=== PATIENT | male | born 1930 | race Caucasian/White ===

== ENCOUNTER 2017-05-10 17:09 | Inpatient (IN) | payer MEDICARE, OTHER ==
[~2017-05-10] VITALS: Ht 175.3 cm; Wt 85.1 kg
[~2017-05-10 17:09] MED LIST: ACAI500C4 PO; ALPH300T PO; ASCO500 PO; ASPI81TA82 PO; CALC500T19 PO; COQ1200C3 PO; FENO50TA; GLUC500C4 PO; LISI2.5T3 PO; NEURO-PS PO; OMEG120017 PO; RESV50CA PO; ROSU5 PO; TAMS0.4C67 PO; TRIA0.25 PO; TURM500C PO; VITA20003 PO
[2017-05-10 17:13] VITALS: BP 122/62; PULSE 117; RESP 16; TEMP 97.9; O2SAT 95
[2017-05-10] MEDS ORDERED: LUTE1TAB PO (17:25)
[2017-05-10] MEDS ORDERED: CHOL5000 PO (17:25)
[2017-05-10] MEDS ORDERED: APIX2.5T PO (17:25)
[2017-05-10] MEDS ORDERED: DILT-60 PO (17:25)
[2017-05-10] MEDS ORDERED: CALC1TAB12 PO (17:25)
[2017-05-10] MEDS ORDERED: MAGN500T2 PO (17:25)
[2017-05-10] MEDS ORDERED: AFLI2VIA (17:25)
[2017-05-10] MEDS ORDERED: UBIQ100C PO (17:25)
[2017-05-10] MEDS ORDERED: CURCPOW PO (17:25)
[2017-05-10] MEDS ORDERED: OMEGCAP PO (17:25)
[2017-05-10] MEDS ORDERED: VITA250T3 PO (17:25)
[2017-05-10] MEDS ORDERED: OCUVTAB4 PO (17:25)
[2017-05-10] MEDS ORDERED: ROSU5 PO (17:25)
[2017-05-10] MEDS ORDERED: MONT10TA2 PO (17:25)
[2017-05-10] MEDS ORDERED: GLUC500T4 PO (17:25)
[2017-05-10] MEDS ORDERED: SODIUM CHLORIDE 0.9% FLUSH 10 ML FLUSH IVF PRN (17:30)
[2017-05-10] MEDS ORDERED: PANTOPRAZOLE SODIUM 40 MG VIAL IVP ONE (17:30)
[2017-05-10 17:39] VITALS: BP 132/76; PULSE 98; RESP 16; O2SAT 94
[2017-05-10 17:40] VITALS: RESP 16; O2SAT 97
--- NOTE | 2017-05-10 17:41 | PD ---
HPI Chief Complaint: Abnormal Results Time Seen by Provider: 17:20 Travel History International Travel<30 days: No Contact w/Intl Traveler<30days: No Traveled to known affect area: No History of Present Illness HPI This patient complains of fatigue and generalized weakness. Symptom duration is one week. He's had black tarry stools for 3 days. He had an outpatient CBC done 3 weeks ago showing a hemoglobin of 16. He had a repeat CBC today that showed a hemoglobin of 8.4 and his doctor advised him to come to the hospital. He takes Eliquis for history of A. fib. He denies prior history of GI bleed. He is not an alcohol abuser. Symptoms severity is moderate. No alleviating factors. Situation exacerbated by blood thinner therapy. 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) Musculoskeletal: No Neurologic: No Psychiatric: No Reproductive: No Respiratory: Yes (PNEUMONIA) Immunizations Current: Yes Myocardial Infarction: Yes Sickle Cell Disease: No Past Surgical History Abdominal Surgery: No AICD: No Arteriovenous Shunt: No Body Medical Devices: DENTAL Cardiac Surgery: Yes (TRIPLE BYPASS IN 1997 OR 1998) Coronary Artery Bypass Graft: Yes (triple bypass) Ear Surgery: No Endocrine Surgery: No Eye Surgery: Yes (BILATERAL CATARACT SURGERY, right retinal detachment) Genitourinary Surgery: Yes (BLADDER CANCER surgery) Gynecologic Surgery: No Insulin Pump: No Joint Replacement: Yes (right hip replacement) Oral Surgery: No Pacemaker: No Thoracic Surgery: No Other Surgery: Yes (hemorroidectomy) Social History Alcohol Use: Yes (OCCASIONAL GLASS OF WINE) Tobacco Use: No (former) Substance Use: No Allergies-Medications (Allergen,Severity, Reaction): Coded Allergies: penicillin G (Unverified Allergy, Severe, Rash, 05/10/17) Reported Meds & Prescriptions Reported Meds & Active Scripts Active Reported Curcumin (Turmeric (Curcuma Longa) (Bulk) 95 % Pow 500 Mg PO DAILY Ubiquinol 100 Mg Cap 100 Mg PO DAILY Preservision Areds (Multiple Vitamins W/ Minerals) 1 Tab 1 Tab PO DAILY Vitamin D3 (Cholecalciferol) 5,000 Unit Cap 5,000 Units PO DAILY Vitamin C (Ascorbic Acid) 250 Mg Tab 500 Mg PO DAILY Glucosamine-Chondroitin 500-400 Mg Tab 1 Tab PO DAILY Lutein 10 Mg Tab 5 Mg PO DAILY [place]-3 Fish Oil/Vitamin (Fish Oil-Cholecalciferol) 1,000-1,000 Mg Cap 1 Cap PO DAILY Magnesium Oxide 500 Mg Tab 500 Mg PO DAILY Calcium 500 +D (Calcium Carbonate-Cholecalciferol) 500-400 Mg-Unit Tab 1 Tab PO TID Eylea (Aflibercept) 2 Mg/0.05 Ml Vial 0 MONTHLY Singulair (Montelukast Sodium) 10 Mg Tab 10 Mg PO HS Crestor (Rosuvastatin Calcium) 5 Mg Tab 5 Mg PO DAILY Diltiazem CD 24 HR 120 Mg Caper 120 Mg PO DAILY Eliquis (Apixaban) 2.5 Mg Tab 2.5 Mg PO BID Review of Systems General / Constitutional: No: Fever Eyes: No: Visual changes HENT: No: Headaches Cardiovascular: Positive: Irregular Rhythm, No: Chest Pain or Discomfort Respiratory: No: Shortness of Breath Gastrointestinal: No: Abdominal Pain Genitourinary: No: Dysuria Musculoskeletal: Positive: Weakness, No: Pain Skin: No Rash Neurologic: Positive: Weakness Psychiatric: No: Depression Endocrine: No: Polydipsia Hematologic/Lymphatic: No: Easy Bruising Physical Exam Narrative GENERAL: Well-nourished, well-developed patient in no apparent distress. SKIN: Focused skin assessment reveals no rash and nodules. Skin is Warm and dry. HEAD: Atraumatic. Normocephalic. EYES: Pupils equal and round. No scleral icterus. No injection or drainage. ENT: No nasal bleeding or discharge. Mucous membranes pink and moist. NECK: Trachea midline. No JVD. CARDIOVASCULAR: Irregularly irregular rhythm. No murmur appreciated. Heart rate 95 RESPIRATORY: No accessory muscle use. Clear to auscultation. Breath sounds equal bilaterally. GASTROINTESTINAL: Abdomen soft, non-tender, nondistended. Hepatic and splenic margins not palpable. MUSCULOSKELETAL: No obvious deformities. No clubbing. No cyanosis. No edema. NEUROLOGICAL: Awake and alert. No obvious cranial nerve deficits. Motor grossly within normal limits. Normal speech. PSYCHIATRIC: Appropriate mood and affect; insight and judgment normal. Rectal: Normal tone. Dark brown stool is heme positive Data Data Last Documented VS Vital Signs Date Time Temp Pulse Resp B/P (MAP) Pulse Ox O2 Delivery O2 Flow Rate FiO2 05/10/17 17:40 16 97 Room Air 05/10/17 17:19 106 05/10/17 17:13 97.9 122/62 (82) Orders Orders Basic Metabolic Panel (Bmp) (05/10/17 17:30) Complete Blood Count With Diff (05/10/17 17:30) Type And Screen (05/10/17 17:30) Ecg Monitoring (05/10/17 17:30) Iv Access Insert/Monitor (05/10/17 17:30) Oximetry (05/10/17 17:30) Pantoprazole Inj (Protonix Inj) (05/10/17 17:30) Sodium Chloride 0.9% Flush (Ns Flush) (05/10/17 17:30) Labs Laboratory Tests Test 05/10/17 17:40 White Blood Count 5.0 TH/MM3 Red Blood Count 3.21 MIL/MM3 Hemoglobin 9.7 GM/DL Hematocrit 28.9 % Mean Corpuscular Volume 90.1 FL Mean Corpuscular Hemoglobin 30.1 PG Mean Corpuscular Hemoglobin Concent 33.5 % Red Cell Distribution Width 14.6 % Platelet Count 210 TH/MM3 Mean Platelet Volume 7.5 FL Neutrophils (%) (Auto) 65.0 % Lymphocytes (%) (Auto) 24.1 % Monocytes (%) (Auto) 9.8 % Eosinophils (%) (Auto) 0.6 % Basophils (%) (Auto) 0.5 % Neutrophils # (Auto) 3.3 TH/MM3 Lymphocytes # (Auto) 1.2 TH/MM3 Monocytes # (Auto) 0.5 TH/MM3 Eosinophils # (Auto) 0.0 TH/MM3 Basophils # (Auto) 0.0 TH/MM3 CBC Comment DIFF FINAL Differential Comment Blood Urea Nitrogen 8 MG/DL Creatinine 0.62 MG/DL Random Glucose 105 MG/DL Calcium Level 9.3 MG/DL Sodium Level 138 MEQ/L Potassium Level 4.1 MEQ/L Chloride Level 103 MEQ/L Carbon Dioxide Level 28.0 MEQ/L Anion Gap 7 MEQ/L Estimat Glomerular Filtration Rate 123 ML/MIN MDM Medical Decision Making Medical Screen Exam Complete: Yes Emergency Medical Condition: Yes Medical Record Reviewed: Yes Differential Diagnosis GI bleed, symptomatic anemia, diverticulosis, anticoagulated Narrative Course I have reviewed the patient's electronic medical record. I reviewed his outpatient lab studies from both 3 weeks ago and today. He had a hemoglobin drop of 8 g over 3 weeks IV placed CBC shows hemoglobin of 9.7 Metabolic profile is normal Type and screen sent I gave him IV Protonix Patient has had a very large hemoglobin drop over the last 3 weeks. He has GI bleed as evidenced by Hemoccult-positive stool now. He is currently on a blood thinner Eliquis and will require hospitalization for evaluation of his GI bleed. I've placed a call to the hospitalist to discuss. Diagnosis Primary Impression: GI bleed Qualified Codes: K92.2 - Gastrointestinal hemorrhage, unspecified Additional Impressions: Symptomatic anemia Anticoagulated Admitting Information Admitting Physician Requests: Nahid Irizarry MD May 10, 2017 17:41
[2017-05-10 17:52] LABS: AUTOMATED NEUTROPHIL # 3.3 TH/MM3 (1.8-7.7); BASOPHIL % 0.5 % (0.0-2.0); EOSINOPHIL % 0.6 % (0.0-4.0); HEMATOCRIT 28.9 % (39.0-51.0); HEMO FLAGS DIFF FINAL; LYMPH % 24.1 % (9.0-44.0); LYMPHOCYTE # 1.2 TH/MM3 (1.0-4.8); MEAN CELL VOLUME 90.1 FL (80.0-100.0); MEAN CORPUSCULAR HEMOGLOBIN 30.1 PG (27.0-34.0); MEAN CORPUSCULAR HGB CONC 33.5 % (32.0-36.0); MONO % 9.8 % (0.0-8.0); PLATELET COUNT 210 TH/MM3 (150-450); RED BLOOD COUNT 3.21 MIL/MM3 (4.50-5.90); RED CELL DISTRIBUTION WIDTH 14.6 % (11.6-17.2)
[2017-05-10 17:59] LABS: POTASSIUM 4.1 MEQ/L (3.5-5.1)
[2017-05-10 18:39] VITALS: BP 114/73; PULSE 92; RESP 16; O2SAT 93
[2017-05-10] MEDS ORDERED: MORPHINE SULFATE 4 MG/ML INJ IV PUSH PRN (19:00)
[2017-05-10] MEDS ORDERED: ACETAMINOPHEN 325 MG TAB PO PRN (19:00)
[2017-05-10] MEDS ORDERED: SODIUM CHLORIDE 0.9% FLUSH 10 ML FLUSH IV FLUSH PRN (19:00)
[2017-05-10] MEDS ORDERED: ONDANSETRON HCL 4 MG/2 ML VIAL IV PUSH PRN (19:00)
[2017-05-10 19:27] LABS: HEMATOCRIT 25.5 % (39.0-51.0); REVIEW FLAG FINAL
[2017-05-10 20:00] VITALS: BP 118/81; PULSE 86; RESP 18; TEMP 95.5; O2SAT 94
[2017-05-10 20:01] VITALS: BP 121/74; PULSE 92; RESP 16; O2SAT 93
[2017-05-10] MEDS: SODIUM CHLORIDE 0.9% FLUSH 10 ML FLUSH IV FLUSH SCH (21:00)
[2017-05-11] VITALS: BP 107/70; PULSE 85; RESP 20; TEMP 97.4; O2SAT 96
[2017-05-11 03:30] LABS: HEMATOCRIT 27.5 % (39.0-51.0)
[2017-05-11 03:32] LABS: REVIEW FLAG FINAL
[2017-05-11 08:00] VITALS: BP 105/75; PULSE 98; RESP 18; TEMP 98.3; O2SAT 94
--- NOTE | 2017-05-11 09:17 | HHI.HP ---
[facility] Primary Care Physician Avelino Leija MD Admission Diagnosis gi bleed, symptomatic anemia,anticoagulated Diagnoses: Travel History International Travel<30 Days: No Contact w/Intl Traveler <30 Da: No Traveled to Known Affected Are: No History of Present Illness This is a pleasant 87-year-old male with past medical history of atrial fibrillation on Eliquis who presents to the ER after being referred by his primary care physician for low hemoglobin. The patient states that about 10 days ago he was put on a topical ointment for an ulcer on his gums. That day he started to develop dark stools that were "sticky" in consistency. He thought nothing of it because they had read that dark stools were side effect of the ointment. However he stopped the ointment about a week ago and continued to have the dark sticky stools. He was also feeling more fatigued. The patient denies any abdominal pain. He does think that he has lost "a couple of pounds" recently. He denies history of GI bleed. The patient went to his primary care physician for routine checkup and was found to have a hemoglobin of 8.4 which was decreased from a hemoglobin of 16 3 weeks prior. The patient had a colonoscopy greater than 10 years ago which showed polyps and hemorrhoids and he underwent a hemorrhoidectomy. The patient this morning states he's not had a bowel movement in 3 days. He did pass some gas this morning and had a small amount of bright red blood per rectum. Guaiac in the emergency department was positive. The patient also states he has had a headache. Previously he was taking ibuprofen intermittently, but none recently. The patient also has osteoarthritis of the right knee and was scheduled to have arthroplasty tomorrow. The patient's claims associate is Dr. Conway. Review of Systems Constitutional: COMPLAINS OF: Weight loss, DENIES: Fatigue, Fever Eyes: DENIES: Blurred vision, Diplopia Ears, nose, mouth, throat: COMPLAINS OF: Oral lesions Respiratory: DENIES: Cough, Shortness of breath Cardiovascular: DENIES: Chest pain, Lower Extremity Edema Gastrointestinal: COMPLAINS OF: Black stools, DENIES: Diarrhea, Nausea, Vomiting Genitourinary: DENIES: Urgency, Dysuria Musculoskeletal: COMPLAINS OF: Joint pain, DENIES: Back pain, Neck pain Integumentary: DENIES: Pruritus, Rash Hematologic/lymphatic: DENIES: Lymphadenopathy Neurologic: COMPLAINS OF: Headache, DENIES: Abnormal gait Psychiatric: DENIES: Anxiety, Confusion Past Family Social History Past Medical History Atrial fibrillation Coronary artery disease status post MD in 1998 status post CABG in 1998 Bladder cancer Cluster headaches Osteoarthritis Hearing loss with hearing aids Past Surgical History CABG Dental surgery Bladder cancer surgery Cataract surgery bilateral, right retinal detachment, right hip replacement, hemorrhoidectomy Reported Medications Allergies Coded Allergies Type Severity Reaction Last Updated Verified penicillin G Allergy Severe Rash 05/10/17 No Active Scripts Medications Dose Route/Sig Max Daily Dose Days Date Category Curcumin (Turmeric (Curcuma Longa) (Bulk) 95 % Pow 500 Mg PO DAILY 05/10/17 Reported Ubiquinol 100 Mg Cap 100 Mg PO DAILY 05/10/17 Reported Preservision Areds (Multiple Vitamins W/ Minerals) 1 Tab 1 Tab PO DAILY 05/10/17 Reported Vitamin D3 (Cholecalciferol) 5,000 Unit Cap 5,000 Units PO DAILY 05/10/17 Reported Vitamin C (Ascorbic Acid) 250 Mg Tab 500 Mg PO DAILY 05/10/17 Reported Glucosamine-Chondroitin 500-400 Mg Tab 1 Tab PO DAILY 05/10/17 Reported Lutein 10 Mg Tab 5 Mg PO DAILY 05/10/17 Reported [place]-3 Fish Oil/Vitamin (Fish Oil-Cholecalciferol) 1,000-1,000 Mg Cap 1 Cap PO DAILY 05/10/17 Reported Magnesium Oxide 500 Mg Tab 500 Mg PO DAILY 05/10/17 Reported Calcium 500 +D (Calcium Carbonate-Cholecalciferol) 500-400 Mg-Unit Tab 1 Tab PO TID 05/10/17 Reported Eylea (Aflibercept) 2 Mg/0.05 Ml Vial 0 MONTHLY 05/10/17 Reported Singulair (Montelukast Sodium) 10 Mg Tab 10 Mg PO HS 05/10/17 Reported Crestor (Rosuvastatin Calcium) 5 Mg Tab 5 Mg PO DAILY 05/10/17 Reported Diltiazem CD 24 HR 120 Mg Caper 120 Mg PO DAILY 05/10/17 Reported Eliquis (Apixaban) 2.5 Mg Tab 2.5 Mg PO BID 05/10/17 Reported Allergies: Coded Allergies: penicillin G (Unverified Allergy, Severe, Rash, 05/10/17) Family History Reviewed and noncontributory Social History He has a fiance. No alcohol tobacco or drug use. Physical Exam Vital Signs Vital Signs Date Time Temp Pulse Resp B/P (MAP) Pulse Ox O2 Delivery O2 Flow Rate FiO2 05/11/17 08:00 98.3 98 18 105/75 (85) 94 05/11/17 00:00 97.4 85 20 107/70 (82) 96 05/10/17 20:24 94 16 93 05/10/17 20:01 92 16 121/74 (90) 93 Room Air 05/10/17 20:00 95.5 86 18 118/81 (93) 94 05/10/17 18:39 92 16 114/73 (87) 93 Room Air 05/10/17 17:40 16 97 Room Air 05/10/17 17:39 98 16 132/76 (94) 94 Room Air 05/10/17 17:19 106 16 95 Room Air 05/10/17 17:13 97.9 117 16 122/62 (82) 95 Physical Exam GENERAL: Well-nourished, well-developed patient. SKIN: Warm and dry. HEAD: Normocephalic. Hearing aids noted. Oropharynx: Positive dentures, no ulcers noted, moist mucous membranes EYES: No scleral icterus. No injection or drainage. NECK: Supple, trachea midline. No JVD or lymphadenopathy. CARDIOVASCULAR: Irregular rate and rhythm without murmurs, gallops, or rubs. RESPIRATORY: Breath sounds equal bilaterally. No accessory muscle use. GASTROINTESTINAL: Abdomen soft, non-tender, nondistended. EXTREMITIES: No cyanosis, or edema. NEUROLOGICAL: Awake, alert, and oriented x 3. Non-focal. Cognitively sharp. Laboratory Laboratory Tests Test 05/10/17 17:40 05/10/17 19:15 05/11/17 02:55 White Blood Count 5.0 Red Blood Count 3.21 Hemoglobin 9.7 8.5 8.8 Hematocrit 28.9 25.5 27.5 Mean Corpuscular Volume 90.1 Mean Corpuscular Hemoglobin 30.1 Mean Corpuscular Hemoglobin Concent 33.5 Red Cell Distribution Width 14.6 Platelet Count 210 Mean Platelet Volume 7.5 Neutrophils (%) (Auto) 65.0 Lymphocytes (%) (Auto) 24.1 Monocytes (%) (Auto) 9.8 Eosinophils (%) (Auto) 0.6 Basophils (%) (Auto) 0.5 Neutrophils # (Auto) 3.3 Lymphocytes # (Auto) 1.2 Monocytes # (Auto) 0.5 Eosinophils # (Auto) 0.0 Basophils # (Auto) 0.0 CBC Comment DIFF FINAL Differential Comment Blood Urea Nitrogen 8 Creatinine 0.62 Random Glucose 105 Calcium Level 9.3 Sodium Level 138 Potassium Level 4.1 Chloride Level 103 Carbon Dioxide Level 28.0 Anion Gap 7 Estimat Glomerular Filtration Rate 123 Result Diagram: 05/11/17 0255 05/10/17 1740 Caprini VTE Risk Assessment Caprini VTE Risk Assessment: Mod/High Risk (score >= 2) Caprini Risk Assessment Model Point Value = 1 Point Value = 2 Point Value = 3 Point Value = 5 Age 41-60 Minor surgery BMI > 25 kg/m2 Swollen legs Varicose veins or History of unexplained or recurrent spontaneous Oral contraceptives or hormone replacement Sepsis (< 1 month) Serious lung disease, including pneumonia (< 1 month) Abnormal pulmonary function Acute myocardial infarction Congestive heart failure (< 1 month) History of inflammatory bowel disease Medical patient at bed rest Age 61-74 Arthroscopic surgery Major open surgery (> 45 min) Laparoscopic surgery (> 45 min) Malignancy Confined to bed (> 72 hours) Immobilizing plaster cast Central venous access Age >= 75 History of VTE Family history of VTE Factor V Leiden Prothrombin [id number] Lupus anticoagulant Anticardiolipin antibodies Elevated serum homocysteine Heparin-induced thrombocytopenia Other congenital or acquired thrombophilia Stroke (< 1 month) Elective arthroplasty Hip, pelvis, or leg fracture Acute spinal cord injury (< 1 month) Prophylaxis Regimen Total Risk Factor Score Risk Level Prophylaxis Regimen 0-1 Low Early ambulation 2 Moderate Order ONE of the following: *Sequential Compression Device (SCD) *Heparin 5000 units SQ BID 3-4 Higher Order ONE of the following medications: *Heparin 5000 units SQ TID *Enoxaparin/Lovenox 40 mg SQ daily (WT < 150 kg, CrCl > 30 mL/min) *Enoxaparin/Lovenox 30 mg SQ daily (WT < 150 kg, CrCl > 10-29 mL/min) *Enoxaparin/Lovenox 30 mg SQ BID (WT < 150 kg, CrCl > 30 mL/min) AND/OR *Sequential Compression Device (SCD) 5 or more Highest Order ONE of the following medications: *Heparin 5000 units SQ TID (Preferred with Epidurals) *Enoxaparin/Lovenox 40 mg SQ daily (WT < 150 kg, CrCl > 30 mL/min) *Enoxaparin/Lovenox 30 mg SQ daily (WT < 150 kg, CrCl > 10-29 mL/min) *Enoxaparin/Lovenox 30 mg SQ BID (WT < 150 kg, CrCl > 30 mL/min) AND *Sequential Compression Device (SCD) Assessment and Plan Problem List: (1) Symptomatic anemia ICD Code: D64.9 - Anemia, unspecified Status: Acute (2) Anticoagulated ICD Code: Z79.01 - prison (current) use of anticoagulants Status: Acute (3) GI bleed ICD Code: K92.2 - Gastrointestinal hemorrhage, unspecified Status: Acute Assessment and Plan -GI bleed with melena, likely an upper source. The patient does take Eliquis for atrial fibrillation. He has a history of hemorrhoids status post hemorrhoidectomy greater than 10 years ago. GI has been consulted. Hemoglobin has been stable overnight. Hold Eliquis. Continue Protonix 40 mg IV twice a day. Continue serial hemoglobin. -Atrial fibrillation - continue Cardizem, hold Eliquis. -Coronary artery disease status post MD in 1998 status post CABG in 1998 - continue statin, hold Eliquis. -DVT prophylaxis with SCDs. Problem Qualifiers (1) GI bleed: Qualified Codes: K92.2 - Gastrointestinal hemorrhage, unspecified Shae Lyons MD May 11, 2017 09:17
[2017-05-11] MEDS: PANTOPRAZOLE SODIUM 40 MG VIAL IV PUSH SCH ×2 (10:09→20:51)
[2017-05-11] MEDS: SODIUM CHLORIDE 0.9% FLUSH 10 ML FLUSH IV FLUSH SCH ×2 (10:09→20:52)
[2017-05-11] MEDS: ATORVASTATIN 10 MG TAB PO SCH (10:36)
[2017-05-11] MEDS: DILTIAZEM-CD 120 MG CAP ER PO SCH (10:36)
[2017-05-11 11:57] LABS: REVIEW FLAG FINAL
[2017-05-11 12:00] VITALS: BP 102/77; PULSE 95; RESP 18; TEMP 97.4; O2SAT 94
[2017-05-11 16:00] VITALS: BP 99/69; PULSE 67; RESP 18; TEMP 96.9; O2SAT 95
[2017-05-11 19:19] LABS: HEMATOCRIT 26.2 % (39.0-51.0); REVIEW FLAG FINAL
[2017-05-11 20:00] VITALS: BP 102/76; PULSE 81; RESP 16; TEMP 98.5; O2SAT 93
--- NOTE | 2017-05-11 20:06 | PD.CONS ---
HPI History of Present Illness This is a 87 year old male whom we are asked to evaluate for anemia and melenic stool the patient reports that he was getting treated with some kind of oral solution and he was told that his stools could become dark as a result and so when he saw the black stools that did not scan at the time but then once he was done with this oral solution he continued to have black stools and when it persisted for a few days after he had discontinued the other medicine he felt this needs to be addressed the patient denies any abdominal pain denies any nausea or vomiting diarrhea or constipation the patient reports a long-standing history of cluster headaches and recently was having headaches and so he was taking 2 Excedrin migraine pills a day he also reports being on Eliquis long- term but because of a planned to do a knee surgery this was stopped a few days earlier The patient currently seems to be comfortable sitting in his chair denies any lightheadedness or dizziness denies any chest pain or shortness of breath he does feel though that he is fatigued [facility] Past Medical History Atrial fibrillation Coronary artery disease status post RI in 1998 status post CABG in 1998 Bladder cancer Cluster headaches Osteoarthritis Hearing loss with hearing aids Past Surgical History CABG Dental surgery Bladder cancer surgery Cataract surgery bilateral, right retinal detachment, right hip replacement, hemorrhoidectomy Coded Allergies: penicillin G (Unverified Allergy, Severe, Rash, 05/10/17) Medications Current Medications Pantoprazole Sodium (Protonix Inj) 40 mg ONCE ONCE IVP Last administered on 17:48; Start 05/10/17 at 17:30; Stop 05/10/17 at 17:31; Status DC Sodium Chloride (NS Flush) 2 ml UNSCH PRN IVF FLUSH AFTER USING IV ACCESS; Start 05/10/17 at 17:30; Stop 05/10/17 at 19:02; Status DC Sodium Chloride (NS Flush) 2 ml UNSCH PRN IV FLUSH FLUSH AFTER USING IV ACCESS ; Start 05/10/17 at 19:00 Sodium Chloride (NS Flush) 2 ml BID IV FLUSH Last administered on 05/11/17 10: 09; Start 05/10/17 at 21:00 Pantoprazole Sodium (Protonix Inj) 40 mg BID IV PUSH Last administered on 10:09; Start 05/11/17 at 09:00 Ondansetron HCl (Zofran Inj) 4 mg Q6H PRN IV PUSH NAUSEA OR VOMITING; Start at 19:00 Acetaminophen (Tylenol) 650 mg Q6H PRN PO PAIN SCALE 1 TO 2; Start 05/10/17 at 19:00 Morphine Sulfate (Morphine Inj) 2 mg Q3H PRN IV PUSH Pain 3-5; if unable to take PO; Start 05/10/17 at 19:00 Diltiazem HCl (Cardizem Cd) 120 mg DAILY PO Last administered on 05/11/17 10: 36; Start 05/11/17 at 10:00 Montelukast Sodium (Singulair) 10 mg HS PO ; Start 05/11/17 at 21:00 Atorvastatin Calcium (Lipitor) 10 mg DAILY PO Last administered on 05/11/17 10 :36; Start 05/11/17 at 10:30 Family History noncontributory Social History He has a fiance. No alcohol tobacco or drug use. Review of Systems ROS Review of systems Patient denies any headache dizziness blurry vision, denies any chest pain shortness of breath cough fever chills, Denies any palpitations denies any polyuria dysuria hematuria, denies any numbness tingling or weakness, denies any skin rash pruritus or jaundice, denies any easy bruising or bleeding tendency, denies any recent change in mood GI Exam Vitals I&O Vital Signs Date Time Temp Pulse Resp B/P (MAP) Pulse Ox O2 Delivery O2 Flow Rate FiO2 05/11/17 16:00 96.9 67 18 99/69 (79) 95 05/11/17 12:00 97.4 95 18 102/77 (85) 94 05/11/17 08:00 98.3 98 18 105/75 (85) 94 05/11/17 00:00 97.4 85 20 107/70 (82) 96 05/10/17 20:24 94 16 93 I/O 05/10/17 05/10/17 05/10/17 05/11/17 05/11/17 05/11/17 07:00 15:00 23:00 07:00 15:00 23:00 Intake Total 240 ml 1200 ml Balance 240 ml 1200 ml Intake Oral 240 ml 1200 ml # Voids 4 # Bowel Movements 1 Laboratory Test 05/11/17 02:55 05/11/17 11:48 05/11/17 18:44 Hemoglobin 8.8 GM/DL 9.0 GM/DL 8.8 GM/DL Hematocrit 27.5 % 27.0 % 26.2 % Physical Examination HEENT: Pupils round and reactive to light; normocephalic; atraumatic; no jaundice. Throat is clear. NECK: Neck is supple, no JVD, no lymphadenopathy. CHEST: Chest is clear to auscultation and percussion. CARDIAC: Irregularly irregular no murmur gallop or rubs. ABDOMEN: Soft, nondistended, nontender; no hepatosplenomegaly; bowel sounds are present in all four quadrants. EXTREMITIES: No clubbing, cyanosis, or edema. SKIN: Normal; no rash; no jaundice. TRIMMER AND REINFORCER: No focal deficits; alert and oriented times three. Assessment and Plan Plan Melena, anemia, recent aspirin use Agree with current supportive care Monitor labs and transfuse as needed We will pursue an upper endoscopy tomorrow Further recommendations shall depend on hospital course and findings of endoscopy Liborio Castaneda MD May 11, 2017 20:06
[2017-05-11] MEDS ORDERED: MONTELUKAST SODIUM 10 MG TAB PO SCH (21:00)
[2017-05-12] VITALS: BP 90/58; PULSE 80; RESP 14; TEMP 98.9; O2SAT 95
[2017-05-12 04:00] VITALS: RESP 18
[2017-05-12 08:00] VITALS: BP 109/75; PULSE 91; RESP 18; TEMP 96; O2SAT 95
[2017-05-12] MEDS ORDERED: LACTATED RINGER'S 1000 ML IV PRN (08:30)
[2017-05-12] MEDS ORDERED: POVIDONE IODINE 5% (ANTISEPSIS KIT) 4 APPLICATIONS EACH NARE PRN (08:30)
[2017-05-12] MEDS ORDERED: METOPROLOL TARTRATE 25 MG TAB PO PRN (08:30)
[2017-05-12] MEDS ORDERED: CHLORHEXIDINE GLUCONATE 2 % 1 PACK (2 CLOTHS) TOPICAL PRN (08:30)
[2017-05-12] MEDS ORDERED: SODIUM CHLORID 0.9% 500 ML IV PRN (08:30)
[2017-05-12] MEDS ORDERED: INSULIN HUMAN REGULAR 1,000 UNITS/10 ML VIAL SQ PRN (08:30)
--- NOTE | 2017-05-12 09:26 | HHI.GIFU ---
Subjective Remarks Patient laying in bed comfortable, no sign of active bleeding, hemoglobin stable Objective Vitals I&O Vital Signs Date Time Temp Pulse Resp B/P (MAP) Pulse Ox O2 Delivery O2 Flow Rate FiO2 05/12/17 08:00 96.0 91 18 109/75 (86) 95 05/12/17 08:00 98.8 84 16 106/75 (85) 95 05/12/17 04:00 18 05/12/17 00:00 98.9 80 14 90/58 (69) 95 05/11/17 20:00 98.5 81 16 102/76 (85) 93 05/11/17 16:00 96.9 67 18 99/69 (79) 95 05/11/17 12:00 97.4 95 18 102/77 (85) 94 I/O 05/11/17 05/11/17 05/11/17 05/12/17 05/12/17 05/12/17 07:00 15:00 23:00 07:00 15:00 23:00 Intake Total 240 ml 1200 ml 480 ml Balance 240 ml 1200 ml 480 ml Intake Oral 240 ml 1200 ml 480 ml # Voids 4 2 # Bowel Movements 1 Laboratory Laboratory Tests Test 05/11/17 11:48 05/11/17 18:44 Hemoglobin 9.0 8.8 Hematocrit 27.0 26.2 Physical Exam HEENT: Pupils round and reactive to light; normocephalic; atraumatic; no jaundice. Throat is clear. NECK: Neck is supple, no JVD, no lymphadenopathy. CHEST: Chest is clear to auscultation and percussion. CARDIAC: Regular rate and rhythm with no murmur gallop or rubs. ABDOMEN: Soft, nondistended, nontender; no hepatosplenomegaly; bowel sounds are present in all four quadrants. EXTREMITIES: No clubbing, cyanosis, or edema. SKIN: Normal; no rash; no jaundice. MICROBIOLOGY TECHNICIAN: No focal deficits; alert and oriented times three. Assessment and Plan Plan Melena, anemia, recent aspirin use his on other questions, no active bleeding now EGD show severe gastropathy superficial biopsy from the body of the stomach also gastritis with few ulcerations biopsy from the antrum Agree with current supportive care Monitor labs and transfuse as needed Consider colonoscopy as an outpatient May start feeding patient Meghan Booth MD May 12, 2017 09:26
[2017-05-12] MEDS ORDERED: PROPOFOL 200 MG/20 ML AMP IV PUSH ONE (09:30)
--- NOTE | 2017-05-12 09:30 | GIPROC ---
[address], [address] EGD PROCEDURE REPORT EXAM DATE: 05/12/2017 PATIENT NAME: Tremaine Roach MR #: [id number] BIRTHDATE: 1930 ATTENDING: Meghan Booth MD ORDER #: [id number] ASSOCIATE MEDICAL DIRECTOR: Cheyenne Mccarty and Tera Gilbert STATUS: inpatient INDICATIONS: The patient is a 87 yr old male here for an EGD due to anemia and Melena PROCEDURE PERFORMED: EGD w/ biopsy MEDICATIONS: None and Per Anesthesia. TOPICAL ANESTHETIC: none CONSENT: The patient understands the risks and benefits of the procedure and understands that these risks include, but are not limited to: sedation, allergic reaction, infection, perforation and/or bleeding. Alternative means of evaluation and treatment include, among others: physical exam, x-rays, and/or surgical intervention. The patient elects to proceed with this endoscopic procedure. medical equipment was checked for proper function. Hand hygiene and appropriate measures for infection prevention was taken. After the risks, benefits and alternatives of the procedure were thoroughly explained, Informed consent was verified, confirmed and timeout was successfully executed by the treatment team. The patient was anesthetized with topical anesthesia and the [employer]ope [employer] [id number] endoscope was introduced through the mouth and advanced to the second portion of the duodenum. Retroflexed views revealed significant gastropathy biopsy was done from the body of the stomach The gastroscope was then slowly withdrawn and removed. Gastritis with a few small ulcers in the antrum biopsy was done. ADVERSE EVENTS: There were no complications. IMPRESSIONS: 1. Gastritis with a few small ulcers in the antrum biopsy was done 2. Retroflexed views revealed significant gastropathy biopsy was done from the body of the stomach RECOMMENDATIONS: 1. Await biopsy results. Biopsy results will not be ready for 7-10 days. If you don't hear from us in two weeks, call our office for biopsy results. 2. Anti-reflux regimen 3. Avoid NSAIDS 4. Protonix 40 mg daily Follow-up in GI clinic in 2 weeks with CBC as an outpatient in 1 week PATIENT CONDITION: stable DISPOSITION: Inpatient REPEAT EXAM: Return 2 months EGD Consider colonoscopy as an outpatient if hemoglobin continues to be low Meghan Booth MD eSigned: Meghan Booth MD 05/12/2017 9:29 AM cc:
[2017-05-12 10:30] VITALS: BP 117/86; PULSE 80
[2017-05-12] MEDS: DILTIAZEM-CD 120 MG CAP ER PO SCH (10:31)
[2017-05-12] MEDS: PANTOPRAZOLE SODIUM 40 MG VIAL IV PUSH SCH (10:31)
[2017-05-12] MEDS: SODIUM CHLORIDE 0.9% FLUSH 10 ML FLUSH IV FLUSH SCH (10:31)
[2017-05-12] MEDS: ATORVASTATIN 10 MG TAB PO SCH (10:31)
[2017-05-12 12:00] VITALS: BP 102/76; PULSE 91; RESP 16; TEMP 96; O2SAT 97
[2017-05-12 15:30] LABS: HEMATOCRIT 29.4 % (39.0-51.0); REVIEW FLAG FINAL
[2017-05-12 16:00] VITALS: BP 97/66; PULSE 85; RESP 16; TEMP 96.4; O2SAT 96
--- NOTE | 2017-05-12 16:29 | HHI.DS ---
Discharge Summary Admission Date May 10, 2017 at 18:31 Discharge Date: May 12, 2017 Admitting Diagnosis gi bleed, symptomatic anemia,anticoagulated (1) Symptomatic anemia ICD Code: D64.9 - Anemia, unspecified Status: Acute (2) Anticoagulated ICD Code: Z79.01 - intermediate manager (current) use of anticoagulants Status: Acute (3) GI bleed ICD Code: K92.2 - Gastrointestinal hemorrhage, unspecified Status: Acute Procedures EGD Brief History - From Admission This is a pleasant 87-year-old male with past medical history of atrial fibrillation on Eliquis who presents to the ER after being referred by his primary care physician for low hemoglobin. The patient states that about 10 days ago he was put on a topical ointment for an ulcer on his gums. That day he started to develop dark stools that were "sticky" in consistency. He thought nothing of it because they had read that dark stools were side effect of the ointment. However he stopped the ointment about a week ago and continued to have the dark sticky stools. He was also feeling more fatigued. The patient denies any abdominal pain. He does think that he has lost "a couple of pounds" recently. He denies history of GI bleed. The patient went to his primary care physician for routine checkup and was found to have a hemoglobin of 8.4 which was decreased from a hemoglobin of 16 3 weeks prior. The patient had a colonoscopy greater than 10 years ago which showed polyps and hemorrhoids and he underwent a hemorrhoidectomy. The patient this morning states he's not had a bowel movement in 3 days. He did pass some gas this morning and had a small amount of bright red blood per rectum. Guaiac in the emergency department was positive. The patient also states he has had a headache. Previously he was taking ibuprofen intermittently, but none recently. The patient also has osteoarthritis of the right knee and was scheduled to have arthroplasty tomorrow. The patient's green tire inspector is Dr. Conway. CBC/BMP: 05/12/17 1520 05/10/17 1740 Significant Findings Laboratory Tests Test 05/10/17 17:40 05/10/17 19:15 05/11/17 02:55 05/11/17 11:48 Red Blood Count 3.21 MIL/MM3 (4.50-5.90) Hemoglobin 9.7 GM/DL (13.0-17.0) 8.5 GM/DL (13.0-17.0) 8.8 GM/DL (13.0-17.0) 9.0 GM/DL (13.0-17.0) Hematocrit 28.9 % (39.0-51.0) 25.5 % (39.0-51.0) 27.5 % (39.0-51.0) 27.0 % (39.0-51.0) Monocytes (%) (Auto) 9.8 % (0.0-8.0) Test 05/11/17 18:44 05/12/17 15:20 Hemoglobin 8.8 GM/DL (13.0-17.0) 9.8 GM/DL (13.0-17.0) Hematocrit 26.2 % (39.0-51.0) 29.4 % (39.0-51.0) Hospital Course Mr. Roach is an 87-year-old male. He was admitted secondary to symptoms of GI bleeding which included melena without hematochezia. He also had symptomatic anemia. Hemoglobin was monitored and shows stability slight increase climb at the end. The nidus of his Hgb trend was 8.5 shortly after admit. This trended upward to 9.8 at time of discharge. EGD was performed and showed gastritis without a focal source of bleeding. Stability in hemoglobin was witnessed. GI cleared the patient for discharge with outpatient follow-up and planned outpatient colonoscopy. Patient is counseled to stop his Eliquis for now. Hemoglobin repeat evaluation will be obtained as an outpatient in approximately 10 days. He will follow-up with gastroenterology in approximately 14 days. Medically stable for discharge home today. Pt Condition on Discharge: Stable Discharge Disposition: Discharge Home Discharge Time: <= 30 minutes Discharge Instructions DIET: Follow Instructions for: As Tolerated, No Restrictions Activities you can perform: Regular-No Restrictions Follow up Referrals: Gastroenterology - 2 Weeks with Meghan Booth MD PCP Follow-up - 1 Week Continued Medications: Aflibercept (Eylea) 2 Mg/0.05 Ml Vial 0 MONTHLY Ascorbic Acid (Vitamin C) 250 Mg Tab 500 MG PO DAILY for Nutritional Supplement, TAB 0 Refills Calcium Carbonate-Cholecalciferol (Calcium 500 +D) 500-400 Mg-Unit Tab 1 TAB PO TID for Calcium Supplement, TAB 0 Refills Cholecalciferol (Vitamin D3) 5,000 Unit Cap 5000 UNITS PO DAILY for Nutritional Supplement, #30 CAP 0 Refills Diltiazem CD 24 HR (Diltiazem CD 24 HR) 120 Mg Caper 120 MG PO DAILY, #30 CAP 0 Refills Fish Oil-Cholecalciferol ([place]-3 Fish Oil/Vitamin) 1,000-1,000 Mg Cap 1 CAP PO DAILY for Nutritional Supplement, CAP 0 Refills Glucosamine-Chondroitin (Glucosamine-Chondroitin) 500-400 Mg Tab 1 TAB PO DAILY for Herbal Supplements, TAB 0 Refills Lutein (Lutein) 10 Mg Tab 5 MG PO DAILY for Nutritional Supplement, TAB 0 Refills Magnesium Oxide (Magnesium Oxide) 500 Mg Tab 500 MG PO DAILY, TAB 0 Refills Montelukast (Singulair) 10 Mg Tab 10 MG PO HS, #30 TAB 0 Refills Multiple Vitamins W/ Minerals (Preservision Areds) 1 Tab 1 TAB PO DAILY for Nutritional Supplement, TAB 0 Refills Rosuvastatin (Crestor) 5 Mg Tab 5 MG PO DAILY for Cholesterol Management, #30 TAB 0 Refills Turmeric (Curcuma Longa) (Bulk (Curcumin) 95 % Pow 500 MG PO DAILY Ubiquinol (Ubiquinol) 100 Mg Cap 100 MG PO DAILY Discontinued Medications: Apixaban (Eliquis) 2.5 Mg Tab 2.5 MG PO BID for Blood Clot Prevention, TAB 0 Refills Felix Ware MD May 12, 2017 16:29
== END 2017-05-12 16:30 | disposition home or self-care (01) | DRG 379 ==
LOC: PHED 17:09 → PHEDA 18:31 → PH3B 20:14
PROVIDERS: ADMIT Hospitalist; ATTEND Hospitalist
PROC: 0DB68ZX Excision of Stomach, Via Natural or Artificial Opening Endoscopic, Diagnostic (ICD-10-PCS; principal; 2017-05-12 09:10)
DX: K92.1 Melena (principal); D64.9 Anemia, unspecified; K25.9 Gastric ulcer, unspecified as acute or chronic, without hemorrhage or perforation; I48.91 Unspecified atrial fibrillation; Z95.1 Presence of aortocoronary bypass graft; I25.10 Atherosclerotic heart disease of native coronary artery without angina pectoris; I25.2 Old myocardial infarction; K29.70 Gastritis, unspecified, without bleeding; M17.11 Unilateral primary osteoarthritis, right knee; Z79.01 Long term (current) use of anticoagulants; Z85.51 Personal history of malignant neoplasm of bladder; H91.90 Unspecified hearing loss, unspecified ear; Z96.641 Presence of right artificial hip joint
CPT/HCPCS: 80048; 85014; 85018; 85025; 86850; 86900; 86901; 88305; 88312; 96374; C9113

== ENCOUNTER 2017-10-08 23:14 | Emergency (ER) | payer MEDICARE, OTHER ==
[~2017-10-08] VITALS: Ht 172.7 cm; Wt 82.5 kg
[~2017-10-08 23:14] MED LIST changes: -ACAI500C4 PO; +AFLI2VIA; -ALPH300T PO; -ASCO500 PO; -ASPI81TA82 PO; +CALC1TAB12 PO; -CALC500T19 PO; +CHOL5000 PO; -COQ1200C3 PO; +CURCPOW PO; +DILT120C50 PO; -FENO50TA; -GLUC500C4 PO; +GLUC500T4 PO; -LISI2.5T3 PO; +LUTE1TAB PO; +MAGN500T2 PO; +MONT10TA2 PO; -NEURO-PS PO; +OCUVTAB4 PO; -OMEG120017 PO; +OMEGCAP PO; -RESV50CA PO; -TAMS0.4C67 PO; -TRIA0.25 PO; -TURM500C PO; +UBIQ1CAP2 PO; -VITA20003 PO; +VITA250T3 PO
[2017-10-08 23:22] VITALS: BP 142/76; PULSE 101; RESP 18; TEMP 97.3; O2SAT 95
[2017-10-09 03:00] VITALS: BP 146/93; PULSE 59; RESP 16; O2SAT 94
[2017-10-09] MEDS ORDERED: SODIUM CHLORIDE 0.9% FLUSH 10 ML FLUSH IVF PRN (03:00)
[2017-10-09 03:38] LABS: AUTOMATED NEUTROPHIL # 3.1 TH/MM3 (1.8-7.7); BASOPHIL % 0.7 % (0.0-2.0); EOSINOPHIL # 0.1 TH/MM3 (0-0.4); EOSINOPHIL % 1.3 % (0.0-4.0); HEMATOCRIT 40.2 % (39.0-51.0); HEMOGLOBIN 13.1 GM/DL (13.0-17.0); LYMPH % 27.4 % (9.0-44.0); LYMPHOCYTE # 1.4 TH/MM3 (1.0-4.8); MEAN CELL VOLUME 84.2 FL (80.0-100.0); MEAN CORPUSCULAR HEMOGLOBIN 27.5 PG (27.0-34.0); MEAN CORPUSCULAR HGB CONC 32.6 % (32.0-36.0); MEAN PLATELET VOLUME 8.1 FL (7.0-11.0); MONO % 10.5 % (0.0-8.0); MONOCYTE # 0.5 TH/MM3 (0-0.9); NEUT % 60.1 % (16.0-70.0); PLATELET COUNT 167 TH/MM3 (150-450); RED BLOOD COUNT 4.78 MIL/MM3 (4.50-5.90); RED CELL DISTRIBUTION WIDTH 18.8 % (11.6-17.2); WHITE BLOOD COUNT 5.1 TH/MM3 (4.0-11.0)
--- NOTE | 2017-10-09 03:40 | RADRPT ---
EXAM DATE/TIME: 10/09/2017 03:09 [facility] COMPARISON: No previous studies available for comparison. INDICATIONS : Patient complain of right groin and testicular pain. ORAL CONTRAST: No oral contrast ingested. RADIATION DOSE: 22.05 CTDIvol (mGy) MEDICAL HISTORY : Cardiovascular disease. Myocardial infarction. Carcinoma, bladder.CAD. Diverticulitis. SURGICAL HISTORY : CABG Total right hip. ENCOUNTER: Initial ACUITY: 1 day PAIN SCALE: 7/10 LOCATION: Right abdomen. TECHNIQUE: Volumetric scanning of the abdomen and pelvis was performed. Using automated exposure control and ad justment of the mA and/or kV according to patient size, radiation dose was kept as low as reasonably achievable to obtain optimal diagnostic quality images. DICOM format image data is available electro nically for review and comparison. FINDINGS: LOWER LUNGS: 14 x 34 mm masslike subpleural opacity partially seen posteromedially of the right lower lobe. LIVER: Homogeneous density without lesion. There is no dilation of the biliary tree. Several gallstones adrienne suring up to 17 mm in size. No associated inflammatory changes are seen. No duct stone or ductal dila tation.. SPLEEN: Normal size without lesion. PANCREAS: Within normal limits. KIDNEYS: Normal in size and shape. 4.2 cm cyst of the left lower pole. There is no solid mass, stone, or hydr onephrosis. ADRENAL GLANDS: Within normal limits. VASCULAR: Atherosclerotic abdominal aorta. Infrarenal portion measures 3.5 cm. BOWEL/MESENTERY: Scattered diverticulosis of the left side of the colon. No acute inflammatory changes. The appendix i s normal. ABDOMINAL WALL: Within normal limits. RETROPERITONEUM: There is no lymphadenopathy. BLADDER: No wall thickening or mass. REPRODUCTIVE: Within normal limits. INGUINAL: Small fat-containing inguinal hernias on both sides. MUSCULOSKELETAL: No acute bony abnormality seen. CONCLUSION: 1. No stones, obstruction or other acute renal abnormality. There is a benign cyst on the left. 2. Elongated masslike opacity in the right lower lobe. This may be infectious or inflammatory. Clinic al correlation and medical management recommended and a followup CT of the chest within 4-6 weeks. 3. Cholelithiasis without evidence of cholecystitis or biliary obstruction. 4. Atherosclerotic and mildly aneurysmal nominal aorta. 5. Small fat-containing bilateral inguinal hernias. 6. Diverticulosis of the sigmoid colon. No diverticulitis or other acute inflammatory changes. Normal appendix. Teo Villanueva MD on October 09, 2017 at 3:34 Board Certified Radiologist. This report was verified electronically.
[2017-10-09 03:56] LABS: CALCIUM 8.6 MG/DL (8.5-10.1)
[2017-10-09 04:00] LABS: CREATININE 0.68 MG/DL (0.60-1.30)
[2017-10-09 04:40] VITALS: BP 123/80; PULSE 79; RESP 16; O2SAT 94
[2017-10-09 04:52] LABS: BILIRUBIN, URINE NEG (NEG); BLOOD, URINE NEG (NEG); GLUCOSE,URINE NEG (NEG); KETONE, URINE NEG (NEG); NITRITE,URINE NEG (NEG); PH, URINE 5.5 (5.0-8.5); URINE LEUKOCYTE ESTERASE NEG (NEG)
[2017-10-09 05:01] LABS: SQUAMOUS EPITHELIAL CELL URINE 0-5 /hpf (0-5); URINE COLOR YELLOW (YELLW/STRAW); WBC, URINE 0-2 /hpf (0-5)
--- NOTE | 2017-10-09 05:34 | RADRPT ---
EXAM DATE/TIME: 10/09/2017 05:09 [facility] COMPARISON: No previous studies available for comparison. INDICATIONS : Right testicle pain. MEDICAL HISTORY : Myocardial infarction. Hypercholesterolemia. Bladder cancer. SURGICAL HISTORY : Hemorrhoidectomy. Cataract surgery. Triple bypass. Right hip replacement. ENCOUNTER: Initial ACUITY: 1 day PAIN SCORE: 0/10 LOCATION: Bilateral scrotum. MEASUREMENTS: RIGHT TESTICLE: 2.9 x 2.3 x 1.4cm LEFT TESTICLE: 3.5 x 2.7 x 2.0cm FINDINGS: RIGHT TESTICLE: Homogeneous echotexture without intra or extratesticular mass. Blood flow is symmetric and within no rmal limits. Small hydrocele. No varicocele. 8 x 5 x 10 mm epididymal head cyst. Epididymis is otherw ise within normal limits. LEFT TESTICLE: Homogeneous echotexture without intra or extratesticular mass. Blood flow is symmetric and within no rmal limits. No hydrocele or varicocele. Epididymis is within normal limits. SCROTUM: Within normal limits. CONCLUSION: 1. Small, nonspecific hydrocele on the right. 2. Incidentally seen subcentimeter spermatocele of the right epididymal head. 3. Normal testes. Teo Villanueva MD on October 09, 2017 at 5:32 Board Certified Radiologist. This report was verified electronically.
--- NOTE | 2017-10-09 05:52 | PD ---
HPI Chief Complaint: Complaint Time Seen by Provider: 02:49 Travel History International Travel<30 days: No Contact w/Intl Traveler<30days: No Traveled to known affect area: No History of Present Illness HPI 87-year-old male presents to the emergency department for complaint of sudden onset right testicular pain. No fever no chills no nausea no vomiting no injury. Patient denies any abdominal pain or flank pain. No report of dysuria frequency urgency or hematuria. Patient denies any right lower extremity pain or swelling. Patient denies any left-sided testicular pain. Patient has history of bilateral inguinal hernias. Patient has not noticed any persistent mass or a reducible inguinal masses. Patient had no penile discharge or blood from the urethral meatus. Patient is currently not taking an antibiotic. Patient states that he is recovering from a left knee replacement and has been sitting quite a bit but has not had any injury that he is aware to the groin or to the scrotum. Patient has not noticed any redness swelling bruising tenderness or abrasions. Patient states his pain is 0/10 at this time. Patient states when symptoms developed his pain was 10/10 in intensity. Symptoms are short in duration. Patient states pain resolve spontaneously. PFSH Past Medical History Narrative Medical Arthritis atrial fibrillation bladder cancer dyslipidemia hypertension CAD [place] CABG left knee replacement; no tobacco use; nursing notes reviewed Arthritis: Yes Atrial Fibrillation: Yes Blood Disorders: No Anxiety: No Depression: No Heart Rhythm Problems: Yes (afib) Cancer: Yes (BLADDER) Cardiovascular Problems: Yes (AFIB) High Cholesterol: Yes Chemotherapy: No Chest Pain: Yes Congestive Heart Failure: No Coronary Artery Disease: Yes Diabetes: No Diminished Hearing: No Diverticulitis: Yes Endocrine: No GERD: No Genitourinary: Yes (BLADDER CA) Hiatal Hernia: No Hypertension: No Immune Disorder: No Kidney Stones: No Musculoskeletal: Yes Neurologic: No Psychiatric: No Reproductive: No Respiratory: Yes (PNEUMONIA) Immunizations Current: Yes Myocardial Infarction: Yes Radiation Therapy: No Renal Failure: No Sickle Cell Disease: No Thyroid Disease: No Ulcer: No Past Surgical History Abdominal Surgery: No AICD: No Arteriovenous Shunt: No Body Medical Devices: DENTAL Cardiac Surgery: Yes (TRIPLE BYPASS IN 1997 OR 1998) Coronary Artery Bypass Graft: Yes (triple bypass) Ear Surgery: No Endocrine Surgery: No Eye Surgery: Yes (BILATERAL CATARACT SURGERY, right retinal detachment) Genitourinary Surgery: Yes (BLADDER CANCER surgery) Gynecologic Surgery: No Insulin Pump: No Joint Replacement: Yes (right hip replacement) Oral Surgery: No Pacemaker: No Thoracic Surgery: No Other Surgery: Yes (hemorroidectomy) Social History Alcohol Use: Yes (OCCASIONAL GLASS OF WINE) Tobacco Use: No (former) Substance Use: No Allergies-Medications (Allergen,Severity, Reaction): Coded Allergies: penicillin G (Unverified Allergy, Severe, Rash, 10/08/17) Reported Meds & Prescriptions Reported Meds & Active Scripts Active Reported Curcumin (Turmeric (Curcuma Longa) (Bulk) 95 % Pow 500 Mg PO DAILY Ubiquinol 100 Mg Cap 100 Mg PO DAILY Preservision Areds (Multiple Vitamins W/ Minerals) 1 Tab 1 Tab PO DAILY Vitamin D3 (Cholecalciferol) 5,000 Unit Cap 5,000 Units PO DAILY Vitamin C (Ascorbic Acid) 250 Mg Tab 500 Mg PO DAILY Glucosamine-Chondroitin 500-400 Mg Tab 1 Tab PO DAILY Lutein 10 Mg Tab 5 Mg PO DAILY [place]-3 Fish Oil/Vitamin (Fish Oil-Cholecalciferol) 1,000-1,000 Mg Cap 1 Cap PO DAILY Magnesium Oxide 500 Mg Tab 500 Mg PO DAILY Calcium 500 +D (Calcium Carbonate-Cholecalciferol) 500-400 Mg-Unit Tab 1 Tab PO TID Eylea (Aflibercept) 2 Mg/0.05 Ml Vial 0 MONTHLY Singulair (Montelukast Sodium) 10 Mg Tab 10 Mg PO HS Crestor (Rosuvastatin Calcium) 5 Mg Tab 5 Mg PO DAILY Diltiazem CD 24 HR 120 Mg Caper 120 Mg PO DAILY Review of Systems Except as stated in HPI: all other systems reviewed are Neg Physical Exam Narrative GENERAL: Well-developed well-nourished male no acute distress or respiratory distress SKIN: Warm and dry. HEAD: Normocephalic. EYES: No scleral icterus. No injection or drainage. NECK: Supple, trachea midline. No JVD or lymphadenopathy. CARDIOVASCULAR: Regular rate and rhythm without murmurs, gallops, or rubs. RESPIRATORY: Breath sounds equal bilaterally. No accessory muscle use. GASTROINTESTINAL: Abdomen soft, non-tender, nondistended. : Uncircumcised male bilaterally descended testicles positive cremasteric reflex no edema erythema mass or tenderness small inguinal hernias bilaterally that are readily reducible. No meatal discharge per MUSCULOSKELETAL: No cyanosis, or edema. BACK: Nontender without obvious deformity. No CVA tenderness. Data Data Last Documented VS Vital Signs Date Time Temp Pulse Resp B/P (MAP) Pulse Ox O2 Delivery O2 Flow Rate FiO2 10/09/17 04:40 79 16 123/80 (94) 94 Room Air 10/08/17 23:22 97.3 Orders Orders Complete Blood Count With Diff (10/09/17 02:58) Basic Metabolic Panel (Bmp) (10/09/17 02:58) Ct Abd/Pel W/O Iv Contrast (10/09/17 02:58) Ecg Monitoring (10/09/17 02:58) Iv Access Insert/Monitor (10/09/17 02:58) Sodium Chloride 0.9% Flush (Ns Flush) (10/09/17 03:00) Urinalysis - C+S If Indicated (10/09/17 04:10) Us Testicles W Doppler (10/09/17 ) Ed Discharge Order (10/09/17 06:00) Labs Laboratory Tests Test 10/09/17 03:29 10/09/17 04:30 White Blood Count 5.1 TH/MM3 Red Blood Count 4.78 MIL/MM3 Hemoglobin 13.1 GM/DL Hematocrit 40.2 % Mean Corpuscular Volume 84.2 FL Mean Corpuscular Hemoglobin 27.5 PG Mean Corpuscular Hemoglobin Concent 32.6 % Red Cell Distribution Width 18.8 % Platelet Count 167 TH/MM3 Mean Platelet Volume 8.1 FL Neutrophils (%) (Auto) 60.1 % Lymphocytes (%) (Auto) 27.4 % Monocytes (%) (Auto) 10.5 % Eosinophils (%) (Auto) 1.3 % Basophils (%) (Auto) 0.7 % Neutrophils # (Auto) 3.1 TH/MM3 Lymphocytes # (Auto) 1.4 TH/MM3 Monocytes # (Auto) 0.5 TH/MM3 Eosinophils # (Auto) 0.1 TH/MM3 Basophils # (Auto) 0.0 TH/MM3 CBC Comment DIFF FINAL Differential Comment Blood Urea Nitrogen 12 MG/DL Creatinine 0.68 MG/DL Random Glucose 107 MG/DL Calcium Level 8.6 MG/DL Sodium Level 138 MEQ/L Potassium Level 3.7 MEQ/L Chloride Level 103 MEQ/L Carbon Dioxide Level 28.0 MEQ/L Anion Gap 7 MEQ/L Estimat Glomerular Filtration Rate 111 ML/MIN Urine Color YELLOW Urine Turbidity CLEAR Urine pH 5.5 Urine Specific [place] 1.007 Urine Protein NEG mg/dL Urine Glucose (UA) NEG mg/dL Urine Ketones NEG mg/dL Urine Occult Blood NEG Urine Nitrite NEG Urine Bilirubin NEG Urine Leukocyte Esterase NEG Urine WBC 0-2 /hpf Urine Squamous Epithelial Cells 0-5 /hpf Microscopic Urinalysis Comment CULT NOT INDICATED MDM Medical Decision Making Medical Screen Exam Complete: Yes Emergency Medical Condition: Yes Medical Record Reviewed: Yes Interpretation(s) Last Impressions Abdomen/Pelvis CT 10/09/17 0258 Signed Impressions: Service Date/Time: Monday, October 09, 2017 03:09 - CONCLUSION: 1. No stones , obstruction or other acute renal abnormality. There is a benign cyst on the left. 2. Elongated masslike opacity in the right lower lobe. This may be infectious or inflammatory. Clinical correlation and medical management recommended and a followup CT of the chest within 4-6 weeks. 3. Cholelithiasis without evidence of cholecystitis or biliary obstruction. 4. Atherosclerotic and mildly aneurysmal nominal aorta. 5. Small fat-containing bilateral inguinal hernias. 6. Diverticulosis of the sigmoid colon. No diverticulitis or other acute inflammatory changes. Normal appendix. Teo Villanueva MD CBC & BMP Diagram 10/09/17 03:29 Calcium Level 8.6 Vital Signs Date Time Temp Pulse Resp B/P (MAP) Pulse Ox O2 Delivery O2 Flow Rate FiO2 10/09/17 04:40 79 16 123/80 (94) 94 Room Air 10/09/17 03:00 59 16 146/93 (110) 94 Room Air 10/08/17 23:22 97.3 101 18 142/76 (98) 95 testicular US: FINDINGS: RIGHT TESTICLE: Homogeneous echotexture without intra or extratesticular mass. Blood flow is symmetric and within normal limits. Small hydrocele. No varicocele. 8 x 5 x 10 mm epididymal head cyst. Epididymis is otherwise within normal limits. LEFT TESTICLE: Homogeneous echotexture without intra or extratesticular mass. Blood flow is symmetric and within normal limits. No hydrocele or varicocele. Epididymis is within normal limits. SCROTUM: Within normal limits. CONCLUSION: 1. Small, nonspecific hydrocele on the right. 2. Incidentally seen subcentimeter spermatocele of the right epididymal head. 3. Normal testes. Teo Villanueva MD on October 09, 2017 at 5:32 Board Certified Radiologist. This report was verified electronically. Differential Diagnosis Testicular pain, epididymoorchitis, prostatitis, inguinal herniorrhaphy, also consider testicular torsion, testicular mass, renal colic, UTI Narrative Course Specimens collected and sent for resulting imaging studies ordered Urinalysis CBC and metabolic panel within normal limits CT abdomen pelvis reveals evidence of possible infiltrate to the lung versus mass recommends outpatient follow-up renal cyst no hydronephrosis or hydroureter or stone identified diverticulosis without diverticulitis; patient informed of imaging results urinalysis is normal and testicular ultrasound ordered ultrasound of testicles reveals bilateral normal blood flow and small hydrocele and small varicocele otherwise unremarkable Patient is stable for outpatient management Diagnosis Primary Impression: Testicular pain, unspecified Additional Impressions: Bilateral inguinal hernia Qualified Codes: K40.20 - Bilateral inguinal hernia, without obstruction or gangrene, not specified as recurrent Hydrocele, right Referrals: Primary Care Physician call for appointment Urologist call for appointment Patient Instructions: General Instructions Additional Instructions: Continue current medications as presently prescribed Follow-up with primary care provider and urologist Return to the emergency department concerns or change in condition Med/Other Pt SpecificInfo: No Change to Meds Disposition: 01 DISCHARGE HOME Condition: Stable Yun Lamb MD Oct 09, 2017 05:52
[2017-10-09 06:19] VITALS: BP 138/89
== END 2017-10-09 06:20 | disposition home or self-care (01) ==
LOC: PHED 23:14
DX: N43.3 Hydrocele, unspecified (principal); K40.20 Bilateral inguinal hernia, without obstruction or gangrene, not specified as recurrent; K57.30 Diverticulosis of large intestine without perforation or abscess without bleeding; K80.20 Calculus of gallbladder without cholecystitis without obstruction; I10 Essential (primary) hypertension; I25.10 Atherosclerotic heart disease of native coronary artery without angina pectoris; I25.2 Old myocardial infarction; I48.91 Unspecified atrial fibrillation; E78.00 Pure hypercholesterolemia, unspecified; Z85.51 Personal history of malignant neoplasm of bladder; Z95.1 Presence of aortocoronary bypass graft; Z87.891 Personal history of nicotine dependence; Z88.0 Allergy status to penicillin; Z79.899 Other long term (current) drug therapy
CPT/HCPCS: 74176; 76870; 80048; 81001; 85025; 93975; 99284